=== PATIENT | female | born 1980 | race American Indian/Alaskan Native ===

== ENCOUNTER 2020-01-13 20:04 | Emergency (ER) | payer SELFPAY ==
[2020-01-13 22:17] VITALS: BP 159/101
[2020-01-13] MEDS ORDERED: IBUPROFEN 600 MG TAB PO ONE ×2 (22:32→22:34)
[2020-01-14] MEDS ORDERED: NEOMY 3.5 MG/BACIT 400 UNITS/POLY B 5000 UNITS/GM OINT PACKET TP ONE ×2 (00:46→03:16)
[2020-01-14] MEDS ORDERED: ACETAMINOPHEN 500 MG TAB PO ONE (00:46)
[2020-01-14] MEDS ORDERED: DIPHtheria,PERTUSSIS(ACELL),TETANUS VACCINE/PF 0.5 ML VIAL IM ONE ×2 (00:46→03:16)
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
[2020-01-14] MEDS ORDERED: ACETAMINOPHEN 500 MG TAB ONE (03:16)
== END 2020-01-14 03:30 | disposition home or self-care (01) ==
LOC: ED 20:04
DX: S00.03XA Contusion of scalp, initial encounter (principal); S10.93XA Contusion of unspecified part of neck, initial encounter; S00.83XA Contusion of other part of head, initial encounter; M62.830 Muscle spasm of back; F17.200 Nicotine dependence, unspecified, uncomplicated; Z91.041 Radiographic dye allergy status; Z79.899 Other long term (current) drug therapy; Y04.8XXA Assault by other bodily force, initial encounter; Y93.89 Activity, other specified; Y92.009 Unspecified place in unspecified non-institutional (private) residence as the place of occurrence of the external cause; Y99.8 Other external cause status
CPT/HCPCS: 70450; 70486; 71046; 72072; 72100; 72125; 90471; 90715; 99284; A6250

== ENCOUNTER 2020-04-23 16:52 | Emergency (ER) | payer SELFPAY ==
[2020-04-23 18:28] VITALS: BP 136/89
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
== END 2020-04-23 21:49 | disposition left against medical advice (07) ==
LOC: ED 16:52
DX: R51.9 Headache, unspecified (principal); M54.5 Low back pain; M54.2 Cervicalgia; Z53.21 Procedure and treatment not carried out due to patient leaving prior to being seen by health care provider

== ENCOUNTER 2021-08-19 18:18 | Emergency (ER) | payer OTHER ==
[2021-08-19] MEDS ORDERED: ONDANSETRON 4 MG ODT TAB PO STA (23:34)
[2021-08-19] MEDS ORDERED: oxyCODONE /ACETAMINOPHEN 5-325MG TAB PO ONE (23:34)
--- NOTE | 2021-08-19 23:40 | Emergency Department Report ---
ED ENT HPI - General Chief complaint: Dental/Oral Stated complaint: TOOTH/GUM PAIN Time Seen by Provider: 08/19/21 23:32 Source: patient Mode of arrival: Ambulatory Limitations: No Limitations - History of Present Illness Initial comments: 41-year-old abdomen female, department complaining of pain to the right lower molar region for the last 2 to 3 days and gradually worsening fashion she noted some swelling as well has suspicion of a dental infection. She reports no fever, chills, sweats. No foul taste no odynophagia or dysphagia. MD complaint: tooth pain -: Gradual Location: tooth # 1 - Dental caries and erosion with adjacent gingival swelling Severity: mild, moderate Quality: dull Consistency: constant Improves with: none Worsens with: none Context- Dental: history of dental caries, poor dental care Context- Ear: recent illness Associated Symptoms: gum swelling, toothache - Related Data Previous Rx's Medication Instructions Recorded Last Taken Type Bacitracin 3.5 gm OP Q8H #1 tube 01/14/20 Unknown Rx Ibuprofen [Motrin] 800 mg PO Q8HR PRN #30 tablet 01/14/20 Unknown Rx cephALEXin [Keflex] 500 mg PO Q8HR #30 cap 01/14/20 Unknown Rx methOCARBAMOL [Robaxin TAB] 750 mg PO Q8H PRN #24 tablet 01/14/20 Unknown Rx traMADoL [Ultram] 50 mg PO Q6HR PRN #12 tablet 01/14/20 Unknown Rx Amoxicillin [Amoxicillin TAB] 875 mg PO BID #20 tablet 08/19/21 Unknown Rx Chlorhexidine Mouthwash [Peridex] 15 ml MM BID #1 bottle 08/19/21 Unknown Rx Ketorolac [Toradol] 10 mg PO Q6H PRN #15 tablet 08/19/21 Unknown Rx Lidocaine Viscous 2% 5 ml MM Q3H PRN #120 udc 08/19/21 Unknown Rx Allergies Allergy/AdvReac Type Severity Reaction Status Date / Time iodine Allergy Anaphylaxis Verified 01/13/20 20:55 ED Dental HPI - General Chief complaint: Dental/Oral Stated complaint: TOOTH/GUM PAIN Time Seen by Provider: 08/19/21 23:32 Source: patient Mode of arrival: Ambulatory Limitations: No Limitations - Related Data Previous Rx's Medication Instructions Recorded Last Taken Type Bacitracin 3.5 gm OP Q8H #1 tube 01/14/20 Unknown Rx Ibuprofen [Motrin] 800 mg PO Q8HR PRN #30 tablet 01/14/20 Unknown Rx cephALEXin [Keflex] 500 mg PO Q8HR #30 cap 01/14/20 Unknown Rx methOCARBAMOL [Robaxin TAB] 750 mg PO Q8H PRN #24 tablet 01/14/20 Unknown Rx traMADoL [Ultram] 50 mg PO Q6HR PRN #12 tablet 01/14/20 Unknown Rx Amoxicillin [Amoxicillin TAB] 875 mg PO BID #20 tablet 08/19/21 Unknown Rx Chlorhexidine Mouthwash [Peridex] 15 ml MM BID #1 bottle 08/19/21 Unknown Rx Ketorolac [Toradol] 10 mg PO Q6H PRN #15 tablet 08/19/21 Unknown Rx Lidocaine Viscous 2% 5 ml MM Q3H PRN #120 udc 08/19/21 Unknown Rx Allergies Allergy/AdvReac Type Severity Reaction Status Date / Time iodine Allergy Anaphylaxis Verified 01/13/20 20:55 ED Review of Systems ROS: Stated complaint: TOOTH/GUM PAIN Other details as noted in HPI Comment: All other systems reviewed and negative ED Past Medical Hx - Past Medical History Additional medical history: [facility] 03-21-2020 - Social History Smoking Status: Current Every Day Smoker Substance Use Type: Alcohol - Medications Home Medications: Home Medications Medication Instructions Recorded Confirmed Last Taken Type Bacitracin 3.5 gm OP Q8H #1 tube 01/14/20 Unknown Rx Ibuprofen [Motrin] 800 mg PO Q8HR PRN #30 tablet 01/14/20 Unknown Rx cephALEXin [Keflex] 500 mg PO Q8HR #30 cap 01/14/20 Unknown Rx methOCARBAMOL [Robaxin TAB] 750 mg PO Q8H PRN #24 tablet 01/14/20 Unknown Rx traMADoL [Ultram] 50 mg PO Q6HR PRN #12 tablet 01/14/20 Unknown Rx Amoxicillin [Amoxicillin TAB] 875 mg PO BID #20 tablet 08/19/21 Unknown Rx Chlorhexidine Mouthwash [Peridex] 15 ml MM BID #1 bottle 08/19/21 Unknown Rx Ketorolac [Toradol] 10 mg PO Q6H PRN #15 tablet 08/19/21 Unknown Rx Lidocaine Viscous 2% 5 ml MM Q3H PRN #120 udc 08/19/21 Unknown Rx ED Physical Exam - General Limitations: No Limitations General appearance: alert, in no apparent distress - Head Head exam: Present: atraumatic, normocephalic - Eye Eye exam: Present: normal appearance, PERRL, EOMI Pupils: Present: normal accommodation - ENT ENT exam: Present: normal exam, normal orophraynx, mucous membranes moist, TM's normal bilaterally - Expanded ENT Exam Expanded Teeth exam: Present: dental caries, dental tenderness # 1 - Dental Tenderness, Other (Adjacent gingival swelling) - Neck Neck exam: Present: normal inspection, full ROM - Respiratory Respiratory exam: Present: normal lung sounds bilaterally. Absent: respiratory distress, wheezes, rales, accessory muscle use, decreased breath sounds - Cardiovascular Cardiovascular Exam: Present: regular rate, normal rhythm. Absent: systolic murmur, diastolic murmur, rubs, gallop - GI/Abdominal GI/Abdominal exam: Present: soft, normal bowel sounds - Extremities Exam Extremities exam: Present: normal inspection - Back Exam Back exam: Present: normal inspection - Neurological Exam Neurological exam: Present: alert, oriented X3 - Psychiatric Psychiatric exam: Present: normal affect, normal mood - Skin Skin exam: Present: warm, dry, intact, normal color. Absent: rash ED Course Vital Signs 08/19/21 18:48 Temperature 98.1 F Pulse Rate 65 Respiratory 18 Rate Blood Pressure 148/85 [Right] O2 Sat by Pulse 100 Oximetry Critical care attestation.: If time is entered above; I have spent that time in minutes in the direct care of this critically ill patient, excluding procedure time. ED Disposition Clinical Impression: Dentalgia, Infected dental caries Disposition: HOME / SELF CARE / HOMELESS Is pt being admited?: No Does the pt Need Aspirin: No Condition: Stable Instructions: Acute Pain, Adult, Dental Abscess, Preventive Dental Care, Adult Referrals: [facility] [Outside] - 3-5 Days
[2021-08-20 00:22] VITALS: BP 152/84
== END 2021-08-20 00:23 | disposition home or self-care (01) ==
LOC: ED 18:18
DX: K08.89 Other specified disorders of teeth and supporting structures (principal); K02.9 Dental caries, unspecified; F17.200 Nicotine dependence, unspecified, uncomplicated; F10.20 Alcohol dependence, uncomplicated; Z91.041 Radiographic dye allergy status
CPT/HCPCS: 99282; J3490; Q0162